=== PATIENT | female | born 1950 | race Two or more races ===

== ENCOUNTER 2023-08-30 16:37 | Inpatient (IN) | payer MEDICARE, OTHER ==
[~2023-08-30] VITALS: Ht 162.6 cm; Wt 93.0 kg
[2023-08-30] MEDS ORDERED: LABETALOL HCL 5 MG/ML 4ML SYRINGE IV ONE (17:00)
[2023-08-30 17:08] LABS: Basophils # (auto) 0 10 ^3/uL (0-0.2); Basophils % (auto) 0.3 % (0.0-2.0); Eosinophils # (auto) 0.3 10 ^3/uL (0-0.8); Eosinophils % (auto) 3.6 % (0.0-7.0); Hematocrit 39.7 % (36.0-46.0); Hemoglobin 13.5 g/dL (12.2-16.2); Lymphocytes # (auto) 1.9 10 ^3/uL (0.4-5.4); Lymphocytes % (auto) 23.3 % (10.0-50.0); Mean Corpuscular Hemoglobin 29.6 pg (28.0-32.0); Monocytes # (auto) 0.6 10 ^3/uL (0-1.3); Monocytes % (auto) 7.3 % (0.0-12.0); Neutrophils # (auto) 5.3 10 ^3/uL (1.6-8.6); Neutrophils % (auto) 65.5 % (37.0-80.0); Nucleated Red Blood Cells % 0.1 %; Red Blood Cells 4.56 10^6/uL (4.0-5.20); Red Cell Distribution Width 13.9 % (11.8-14.3); White Blood Cell 8.1 10^3/uL (4.4-10.8)
[2023-08-30] MEDS: ASPirin 325 MG TAB PO ONE (17:24)
[2023-08-30] MEDS: NITROGLYCERIN 0.4 MG SL TAB SL ONE (17:25)
[2023-08-30 17:27] VITALS: PULSE 89; RESP 18; O2SAT 95
[2023-08-30 17:32] LABS: Alanine Aminotransferase 20 U/L (7-40); Albumin 4.2 g/dL (3.2-4.8); Alkaline Phosphatase 82 U/L (46-116); Anion Gap 9 (5-15); Aspartate Aminotransferase 13 U/L (13-40); BUN/Creatinine Ratio 19.5 (10.0-20.0); Blood Urea Nitrogen 15 mg/dL (9-23); Carbon Dioxide 22 mmol/L (20-30); Chloride 110 mmol/L (98-107); Glucose 97 mg/dL (74-106); Sodium 141 mmol/L (136-145)
[2023-08-30 17:33] LABS: Bilirubin, Total 0.6 mg/dL (0.2-1.0)
[2023-08-30] MEDS: hydrALAZINE HCL 20 MG/ML VL IV ONE (18:00)
[2023-08-30] MEDS: IOHEXOL 350 MG/ML 100ML IJ ONE (21:14)
[2023-08-30 21:40] LABS: Urine Bacteria FEW /hpf (None Seen); Urine Blood Negative /uL (Negative); Urine Clarity Clear (Clear); Urine Color Light-Yellow (Yellow); Urine Mucus FEW (None Seen); Urine Protein, UAD Negative (Negative); Urine Urobilinogen Normal (Negative); Urine WBC 4 /hpf (0 - 5)
[2023-08-30] MEDS ORDERED: ACETAMINOPHEN 325 MG TAB PO PRN (22:00)
[2023-08-30] MEDS ORDERED: MORPHINE SULFATE INJ 2 MG/ml SYRG IV PRN (22:30)
[2023-08-30] MEDS ORDERED: NITROGLYCERIN 0.4 MG SL TAB SL PRN (22:30)
[2023-08-30] MEDS: ATORVASTATIN 20 MG TAB PO SCH (23:08)
[2023-08-31] VITALS (8 sets, daily range): BP systolic 114–172; BP diastolic 67–92; PULSE 65–140; RESP 14–20; TEMP 97.6–98.4; O2SAT 94–99
[2023-08-31] MEDS: IOHEXOL 350 MG/ML 100ML IJ ONE (00:31)
[2023-08-31] MEDS: hydrALAZINE HCL 20 MG/ML VL IV PRN (01:38)
[2023-08-31] MEDS ORDERED: CHOL20003 PO (02:51)
[2023-08-31] MEDS ORDERED: IBUP-1455 PO (02:51)
[2023-08-31] MEDS: IBUPROFEN 400 MG TAB PO ONE (03:21)
[2023-08-31 07:14] LABS: Chloride 109 mmol/L (98-107); Potassium 3.4 mmol/L (3.5-5.1); Sodium 141 mmol/L (136-145)
[2023-08-31 07:15] LABS: Anion Gap 9 (5-15); Calcium 9.4 mg/dL (8.5-10.1); Carbon Dioxide 23 mmol/L (20-30)
[2023-08-31 07:20] LABS: BUN/Creatinine Ratio 17.8 (10.0-20.0); Blood Urea Nitrogen 13 mg/dL (9-23); Glucose 106 mg/dL (74-106)
[2023-08-31] MEDS: ONDANSETRON HCL 4 MG/2 ML VIAL IV PRN (10:04)
[2023-08-31] MEDS: LISINOPRIL 5 MG TAB PO SCH (11:40)
[2023-08-31] MEDS: IBUPROFEN 800 MG TAB PO PRN (11:50)
[2023-08-31] MEDS: ASPirin 81 mg TAB PO SCH (11:52)
[2023-08-31] MEDS: ENOXAPARIN SOD 40 MG/0.4 ML SYRINGE SC SCH (11:52)
[2023-08-31 13:23] LABS: Triglycerides 130 mg/dL (< 150)
[2023-08-31 13:24] LABS: LDL Cholesterol 125 mg/dL (< 100)
[2023-08-31 13:25] LABS: Cholesterol 170 mg/dL (< 200); HDL Cholesterol 42 mg/dL (40-59)
[2023-09-01] VITALS (7 sets, daily range): BP systolic 115–155; BP diastolic 67–77; PULSE 61–82; RESP 20; TEMP 36.4; O2SAT 94–95
[2023-09-01] MEDS ORDERED: LISI20TA56 PO (10:28)
== END 2023-09-01 12:10 | disposition home or self-care (01) | DRG 305 ==
LOC: ER 16:37 → TELE 22:24 → TELE-EAST 08-31 02:32
PROVIDERS: ADMIT Nurse Practitioner; ATTEND Family Medicine
DX: I16.0 Hypertensive urgency (principal); G89.29 Other chronic pain; Z79.899 Other long term (current) drug therapy; Z83.3 Family history of diabetes mellitus; Z80.3 Family history of malignant neoplasm of breast; Z82.3 Family history of stroke
CPT/HCPCS: 36415; 70450; 71045; 71275; 80048; 80053; 80061; 81001; 83880; 84443; 84484; 85025; 85379; 93005; 93306; G0378; J2405; J3490